=== PATIENT | female | born 1965 | race Caucasian/White ===

== ENCOUNTER 2019-11-28 04:01 | Inpatient (IN) | payer OTHER ==
[2019-11-28] VITALS (801 sets, daily range): BP systolic 99–125; BP diastolic 56–72; PULSE 83–110; TEMP 98.6–99.4; O2SAT 57–100
[~2019-11-28] VITALS: Ht 154.9 cm; Wt 64.7 kg
[2019-11-28 04:46] LABS: MEAN CELL VOLUME 112 fl (80.0-100.0); MEAN CORPUSCULAR HGB CONC 32 g/dl (33.0-37.0); MEAN PLATELET VOLUME 11.2 fl (7.4-10.4); PLATELET COUNT 200 K/mm3 (130-400); RED BLOOD COUNT 1.56 M/mm3 (4.10-5.30)
[2019-11-28 04:48] LABS: MEAN CORPUSCULAR HEMOGLOBIN 36 pg (27.0-31.0)
[2019-11-28 04:49] LABS: HEMOGLOBIN 5.6 g/dl (12.5-16.0)
[2019-11-28 04:50] LABS: HEMATOCRIT 17.4 % (37.0-47.0)
[2019-11-28 04:55] LABS: INR 1.6 (0.8-3.0); PROTHROMBIN TIME 17.9 SECONDS (9.7-12.8)
[2019-11-28 04:58] LABS: ALANINE AMINOTRANSFERASE 52 U/L (4-34); ALBUMIN 2.7 gm/dL (3.5-5.0); ALKALINE PHOSPHATASE 122 U/L (50-136); ANION GAP 8 mmol/L (7-16); AST,SGOT 87 U/L (15-37); BILIRUBIN,TOTAL 1.8 mg/dL (0.0-1.0); BLOOD UREA NITROGEN 22 mg/dL (7-17); CALCIUM 8.6 mg/dL (8.4-10.2); CARBON DIOXIDE 22 mmol/L (22-30); CHLORIDE 107 mmol/L (98-107); CREATININE, serum 0.66 (0.52-1.25); GLUCOSE 144 mg/dL (74-106); POTASSIUM 3.7 mmol/L (3.4-5.0); SODIUM 137 mmol/L (137-145)
[2019-11-28 04:59] LABS: ALCOHOL(ethanol),MEDICAL < 10 mg/dL
[2019-11-28 05:09] LABS: BAND 15 % (0-10); LYMPHOCYTE 19 % (20.0-51.0); NEUTROPHILS 62 % (42.0-75.2); PLATELET ESTIMATE NORMAL (NORMAL); TROPONIN-I < 0.012 ng/mL (0.000-0.035)
[2019-11-28] MEDS ORDERED: RT ADVAIR 228 DISKUS IH (05:36)
[2019-11-28] MEDS ORDERED: EFFEXOR 50M50 MG/TAB PO (05:36)
[2019-11-28] MEDS ORDERED: ALDACTONE 25MG25 M1 PO (05:37)
[2019-11-28] MEDS ORDERED: LASIX 20MG TABL20 MG PO (05:37)
[2019-11-28] MEDS ORDERED: EFFEXOR XR75 MG/CAP PO (05:45)
[2019-11-28] MEDS ORDERED: VENTOLIN0.09 MG IH (05:46)
[2019-11-28 07:05] LABS: MAGNESIUM 1.8 mg/dL (1.6-2.3); PHOSPHOROUS 4.5 mg/dL (2.5-4.5); SALICYLATE 6.5 mg/dL
[2019-11-28 07:16] LABS: TROPONIN-I < 0.012 ng/mL (0.000-0.035)
--- NOTE | 2019-11-28 07:20 | NUR ---
Report received from Nori SERRATO and care resumed.
--- NOTE | 2019-11-28 07:50 | NUR ---
Dr Gilbert in to see pt at this time.
[2019-11-28 11:27] LABS: HEMATOCRIT 22.1 % (37.0-47.0); HEMOGLOBIN 7.3 g/dl (12.5-16.0)
--- NOTE | 2019-11-28 11:39 | NUR ---
HGB result called to Dr Gilbert and jameel. Will procedure with EGD.
--- NOTE | 2019-11-28 15:26 | NUR ---
central office worker attempted to see patient, however patient was sleeping after procedure and would not awaken. Worker called spouse, Abraham #[phone]. Abraham states they are staying with family and visting from [place]. Abraham states that patient does not work and that [facility] insurance is accurate. Case management will meet with patient in the morning, when she is awake for further assessment.
[2019-11-28 16:53] LABS: HEMATOCRIT 23.8 % (37.0-47.0); HEMOGLOBIN 7.8 g/dl (12.5-16.0)
--- NOTE | 2019-11-28 19:03 | NUR ---
Report given to Nori SERRATO and care transfered.
--- NOTE | 2019-11-28 21:00 | NUR ---
Resting in bed at this time. Denies any pain; reports feeling a little "sleepy" but feels better since receiving the 2 units of prbc's. VS stable. Provided supplies for PM care and accepted. Call light left within reach. Will continue to monitor.
[2019-11-28 22:04] LABS: HEMATOCRIT 22.9 % (37.0-47.0); HEMOGLOBIN 7.4 g/dl (12.5-16.0)
[2019-11-29] VITALS (363 sets, daily range): BP systolic 104–134; BP diastolic 51–84; PULSE 71–91; TEMP 98–99.2; O2SAT 68–100
--- NOTE | 2019-11-29 00:45 | NUR ---
Resting in bed with eyes shut; no concerns at this time.
[2019-11-29 07:06] LABS: INR 1.3 (0.8-3.0); PROTHROMBIN TIME 14.8 SECONDS (9.7-12.8)
[2019-11-29 07:08] LABS: ALBUMIN 2.4 gm/dL (3.5-5.0); BILIRUBIN,TOTAL 1.3 mg/dL (0.0-1.0); CALCIUM 7.2 mg/dL (8.4-10.2); CREATININE, serum 0.76 (0.52-1.25); POTASSIUM 3.4 mmol/L (3.4-5.0); TOTAL PROTEIN 4.6 gm/dL (6.4-8.2)
[2019-11-29 07:20] LABS: BASO # 0.1 (0.0-0.2); BASO % 1.2 % (0.0-2.0); EOS # 0.6 (0.0-0.7); EOS % 8.5 % (0-4.0); GRAN # 4.2 (1.4-6.5); GRAN % 55.9 % (42.2-75.2); LYMPH % 26.4 % (20.0-51.0); MEAN CORPUSCULAR HGB CONC 32 g/dl (33.0-37.0); MEAN PLATELET VOLUME 11.5 fl (7.4-10.4); MONO # 0.5 (0.1-0.6); MONO % 6.9 % (1.7-9.3); PLATELET COUNT 110 K/mm3 (130-400); RED BLOOD COUNT 2.11 M/mm3 (4.10-5.30); REDCELL DISTRIBUTION WIDTH-CV 22.9 % (11.5-14.5)
--- NOTE | 2019-11-29 07:30 | NUR ---
Report recieved from Nori SERRATO. Patient sleeping in bed at this time
[2019-11-29 07:36] LABS: HEMATOCRIT 21.7 % (37.0-47.0); MEAN CORPUSCULAR HEMOGLOBIN 33 pg (27.0-31.0)
[2019-11-29 07:38] LABS: MEAN CELL VOLUME 103 fl (80.0-100.0)
--- NOTE | 2019-11-29 10:07 | NUR ---
LACIE met with the patient to discuss discharge plan. The patient lives in [place], [place] with her , Ap (ph#[phone]). The patient and her were in [place] for her nephew's graduation. She reports independence with ADLs and does not have any DME. The patient receives primary care at [facility] in [place] and her aircraft time clerk is Dr. Matthew Butterfield. She receives her medications at a pharmacy in [place] and she reports no difficulties obtaining her meds. The patient reports that she does have advanced directives completed and that her is her DPOA-HC. The patient plans to return to her sister's home in [place] and then will return back to her home in [place] with her upon discharge. LACIE addressed the patient's alcohol use and discussed outpatient and inpatient treatment. The patient reports that she is unsure about treatment at this time, but was interested in getting some information on outpatient treatment back home. LACIE provided the patient with a list of the different outpatient treatment centers and AA meetings in and around [place] and the [place] area. LACIE to continue to follow as needed.
[2019-11-29 13:23] LABS: HEMATOCRIT 22.4 % (37.0-47.0); HEMOGLOBIN 7.2 g/dl (12.5-16.0)
--- NOTE | 2019-11-29 14:48 | NUR ---
Patient complains of "cramping" and "tremors" to hands, tremors visible to this RN. Ativan PO given, will continue to monitor.
--- NOTE | 2019-11-29 19:04 | NUR ---
Report given to Connie SERRATO
--- NOTE | 2019-11-29 20:00 | NUR ---
Patient to medical room 318 at 1945 from ICU. She is alert and oriented and has a steady gait from wheelchair to bed. Lung sounds are clear, heart sounds normal/regular, trace edema bilateral lower extremities with no pitting, no pain. No tremors are visible at this time. No new concerns.
[2019-11-30 00:18] VITALS: BP 115/52; PULSE 85; TEMP 98.2
[2019-11-30 04:24] VITALS: BP 120/60; PULSE 84; TEMP 98.2
--- NOTE | 2019-11-30 05:48 | NUR ---
Patient has had a restful night and has not called for anything. No new concerns.
[2019-11-30 07:21] LABS: INR 1.2 (0.8-3.0); PROTHROMBIN TIME 13.6 SECONDS (9.7-12.8)
[2019-11-30 07:24] LABS: BASO # 0.1 (0.0-0.2); EOS # 0.6 (0.0-0.7); EOS % 7.5 % (0-4.0); GRAN # 4.5 (1.4-6.5); GRAN % 61.7 % (42.2-75.2); LYMPH # 1.6 (1.2-3.4); LYMPH % 21.4 % (20.0-51.0); MEAN CELL VOLUME 104 fl (80.0-100.0); MEAN CORPUSCULAR HGB CONC 32 g/dl (33.0-37.0); MEAN PLATELET VOLUME 11.3 fl (7.4-10.4); MONO # 0.6 (0.1-0.6); PLATELET COUNT 102 K/mm3 (130-400); RED BLOOD COUNT 2.15 M/mm3 (4.10-5.30); REDCELL DISTRIBUTION WIDTH-CV 21.9 % (11.5-14.5)
[2019-11-30 07:26] LABS: ALBUMIN 2.3 gm/dL (3.5-5.0); BILIRUBIN,TOTAL 1.4 mg/dL (0.0-1.0); CALCIUM 7.7 mg/dL (8.4-10.2); CREATININE, serum 0.63 (0.52-1.25); POTASSIUM 3.5 mmol/L (3.4-5.0); TOTAL PROTEIN 4.5 gm/dL (6.4-8.2)
[2019-11-30 07:30] LABS: HEMATOCRIT 22.4 % (37.0-47.0); HEMOGLOBIN 7.1 g/dl (12.5-16.0); MEAN CORPUSCULAR HEMOGLOBIN 33 pg (27.0-31.0)
[2019-11-30 08:36] VITALS: BP 113/57; PULSE 89; TEMP 98.4
--- NOTE | 2019-11-30 10:08 | NUR ---
Jeeper Operator attended clinical rounds with the team. Patient may discharge later today if she does well eating. No additional needs at this time.
[2019-11-30 12:57] VITALS: BP 119/58; PULSE 91; TEMP 98.1
[2019-11-30] MEDS ORDERED: DUO-KAPS1 CAP PO (13:47)
[2019-11-30] MEDS ORDERED: FOLIC ACID 11 MG/TA1 PO (13:47)
[2019-11-30] MEDS ORDERED: PROTONIX 40MG T40 MG PO (13:47)
[2019-11-30] MEDS ORDERED: NATURE'S BLEND100 M2 PO (13:47)
--- NOTE | 2019-11-30 15:09 | NUR ---
Pt assessment completed and charted, alert, oriented, roomair, independent. Meds given as per AUG. I/V line flushed without complications. No N/V/D, pain, numbness, tingling, SOB at this time as per pt. Pt is on her bedside. Pt went for shower before going home. Working on her discharge procedure. No further needs at this time.
--- NOTE | 2019-11-30 16:59 | NUR ---
Pt discharge process completed, teaching ptovided by AMA Davidson. Pt was with her. Dropped down to the ER by Shannan around 1600.
== END 2019-11-30 16:10 | disposition home or self-care (01) | DRG 378 ==
LOC: COL.ER 04:01 → ICU 05:13 → MEDICAL 05:13
PROVIDERS: Emergency Medicine; Internal Medicine Gastroenterology; Nurse Practitioner Family; ADMIT Student in an Organized Health Care Education/Training Program
PROC: 0W3P8ZZ Control Bleeding in Gastrointestinal Tract, Via Natural or Artificial Opening Endoscopic (ICD-10-PCS; principal; 2019-11-28 10:15)
DX: K26.4 Chronic or unspecified duodenal ulcer with hemorrhage (principal); D62 Acute posthemorrhagic anemia; R65.10 Systemic inflammatory response syndrome (SIRS) of non-infectious origin without acute organ dysfunction; K70.30 Alcoholic cirrhosis of liver without ascites; J45.909 Unspecified asthma, uncomplicated; E87.6 Hypokalemia; D53.9 Nutritional anemia, unspecified
CPT/HCPCS: 99223-AI; 99233-AI; 99239; C9113; J0171; J0696; J1364; J2250; J2354; J2704; J3411; J3480; J7030; J7040; P9016